=== PATIENT | male | born 1985 | race Caucasian/White ===

== ENCOUNTER 2016-10-11 08:47 | Emergency (ER) | payer MEDICAID ==
[~2016-10-11] VITALS: Ht 182.9 cm; Wt 81.6 kg
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
[2016-10-11 10:19] LABS: EOSINOPHILS % (AUTO) 1.2 % (0.0-3.0); LYMPHOCYTES % (AUTO) 25.9 % (20.0-45.0); MEAN CORPUSCULAR HEMOGLOBIN 26.7 PG (27.0-31.0); MEAN CORPUSCULAR HGB CONC 32.5 G/DL (32.0-36.0); MEAN CORPUSCULAR VOLUME 82 FL (80-99); MEAN PLATELET VOLUME 6.7 FL (6.5-10.1); MONOCYTES % (AUTO) 7.5 % (1.0-10.0); NEUTROPHILS % (AUTO) 64.5 % (45.0-75.0); PLATELET COUNT 404 K/UL (150-450); RED BLOOD COUNT 4.87 M/UL (4.70-6.10); RED CELL DISTRIBUTION WIDTH 12.3 % (11.6-14.8); WHITE BLOOD COUNT 8.1 K/UL (4.8-10.8)
[2016-10-11 10:23] LABS: ACETAMINOPHEN < 10 ug/mL (10-30); ALANINE AMINOTRANSFERASE 33 U/L (3-41); ALBUMIN/GLOBULIN RATIO 0.8 (1.0-2.7); ALCOHOL < 10 mg/dL; ANION GAP 15 (5-15); ASPARTATE AMINO TRANSFERASE 39 U/L (5-40); CALCIUM 9.3 mg/dL (8.6-10.2); CARBON DIOXIDE 25 mEQ/L (20-30); CHLORIDE 98 mEQ/L (98-107); CREATININE 0.9 mg/dL (0.7-1.2); GLOMERULAR FILTRATION RATE > 60 mL/min (>60); HEMOLYSIS 6; POTASSIUM 4.3 mEQ/L (3.4-4.9); SODIUM 138 mEQ/L (135-145); TOTAL PROTEIN 8.5 g/dL (6.6-8.7)
[2016-10-11 12:42] VITALS: BP 125/80
[2016-10-11 15:04] VITALS: BP 132/70
[2016-10-11] MEDS ORDERED: WELLBUTRIN SR100 MG ORAL (15:42)
[2016-10-11] MEDS ORDERED: REMERON45 MG ORAL (15:42)
[2016-10-11] MEDS ORDERED: ZYPREXA10 MG ORAL (15:42)
[2016-10-11] MEDS ORDERED: ATRIPLA TABLET1 EAC1 ORAL (15:42)
[2016-10-11 16:40] VITALS: BP 127/73
[2016-10-11 18:01] VITALS: BP 127/73
[2016-10-11] MEDS ORDERED: GABAPENTIN100 MG ORAL (18:07)
== END 2016-10-11 18:01 | disposition home or self-care (01) ==
LOC: EDBD 08:47 → EMR 09:06
DX: F25.9 Schizoaffective disorder, unspecified (principal); F19.10 Other psychoactive substance abuse, uncomplicated; S60.512A Abrasion of left hand, initial encounter; S60.511A Abrasion of right hand, initial encounter; X58.XXXA Exposure to other specified factors, initial encounter; Y93.9 Activity, unspecified; Y92.9 Unspecified place or not applicable; Z88.8 Allergy status to other drugs, medicaments and biological substances; Z88.2 Allergy status to sulfonamides; Z88.1 Allergy status to other antibiotic agents; F17.200 Nicotine dependence, unspecified, uncomplicated
CPT/HCPCS: 36415; 80053; 80300; 80329; 82550; 85025; 99284

== ENCOUNTER 2016-10-13 02:39 | Emergency (ER) | payer MEDICAID ==
[~2016-10-13] VITALS: Ht 185.4 cm; Wt 72.6 kg
[~2016-10-13 02:39] MED LIST: ATRIPLA TABLET1 EAC1 ORAL; GABAPENTIN100 MG ORAL; REMERON45 MG ORAL; WELLBUTRIN SR100 MG ORAL; ZYPREXA10 MG ORAL
[2016-10-13 02:55] VITALS: BP 136/75
[2016-10-13 03:00] VITALS: BP 136/75
--- NOTE | 2016-10-13 03:19 | Emergency Room Report ---
History of Present Illness General Chief Complaint: General Complaint Source: Patient Present Illness HPI Is a 31-year-old woman who is homeless. He said that he has history of HIV and wants to be checked in the prescription. He was here for the same thing yesterday. Denies any fever or chills. Denies any nausea vomiting. No trauma. He wants food also. Does not want social service consult. Allergies: Coded Allergies: AMOXICILLIN (Verified Allergy, Unknown, 05/04/16) SULFAMETHOXAZOLE (Verified Allergy, Unknown, 05/04/16) TRIMETHOPRIM (Verified Allergy, Unknown, 05/04/16) Patient History Past Medical History: see triage record, old chart reviewed, HIV Past Surgical History: other Pertinent Family History: none Social History: Reports: alcohol use, drug use, smoking Immunizations: other Reviewed Nursing Documentation: PMH: Agreed, PSxH: Agreed Review of Systems Eye: Denies: blurred vision, eye pain ENT: Denies: ear pain, nose congestion, throat swelling Respiratory: Denies: cough, shortness of breath Cardiovascular: Denies: chest pain, palpitations Gastrointestinal: Denies: abdominal pain, diarrhea, nausea, vomiting Musculoskeletal: Denies: back pain, joint pain Skin: Denies: rash Neurological: Denies: headache, numbness Endocrine: Denies: increased thirst, increased urine Hematologic/Lymphatic: Denies: easy bruising All Other Systems: negative except mentioned in HPI Physical Exam Vital Signs Date Time Temp Pulse Resp B/P Pulse Ox O2 Delivery O2 Flow Rate FiO2 10/13/16 02:48 97.9 90 16 136/75 100 Room Air vitals normal Sp02 EP Interpretation: reviewed, normal General Appearance: well appearing, no apparent distress, alert Head: normocephalic, atraumatic Eyes: bilateral eye EOMI, bilateral eye PERRL ENT: hearing grossly normal, normal pharynx Neck: full range of motion, supple, no meningismus Respiratory: chest non-tender, lungs clear, normal breath sounds Cardiovascular #1: regular rate, rhythm, no murmur Gastrointestinal: normal bowel sounds, non tender, no mass, no organomegaly, no bruit, non-distended Musculoskeletal: back normal, gait/station normal, normal range of motion Psychiatric: mood/affect normal Skin: warm/dry Medical Decision Making Diagnostic Impression: Primary Impression: Substance abuse ER Course Patient has a history of amphetamine abuse. He wants HIV medication. He doesn' t know what he supposed be on. I, am not comfortable writing prescription for it. We'll discharge home. After he ate he said he felt better and wants to leave. Last Vital Signs Date Time Temp Pulse Resp B/P Pulse Ox O2 Delivery O2 Flow Rate FiO2 10/13/16 02:48 97.9 90 16 136/75 100 Room Air Status: improved Disposition: HOME, SELF-CARE Condition: Stable PITER NEIL M.D. Oct 13, 2016 03:19
== END 2016-10-13 03:00 | disposition home or self-care (01) ==
LOC: EMR 02:58
DX: F15.10 Other stimulant abuse, uncomplicated (principal); Z88.0 Allergy status to penicillin; Z88.2 Allergy status to sulfonamides; F17.200 Nicotine dependence, unspecified, uncomplicated; Z59.0 Homelessness
CPT/HCPCS: 99282

== ENCOUNTER 2016-10-13 04:09 | Emergency (ER) | payer MEDICAID ==
[~2016-10-13] VITALS: Ht 185.4 cm; Wt 72.6 kg
[2016-10-13 04:02] VITALS: BP 137/80
[2016-10-13 04:03] VITALS: BP 137/80
--- NOTE | 2016-10-13 04:18 | Emergency Room Report ---
History of Present Illness General Chief Complaint: Abdominal Pain Source: Patient Present Illness HPI Is a 31-year-old male who was here earlier. After he ate he left. Now he called 911 from nearby fast food complaining of abdominal pain. He came in asking for food. He still wants his HIV medication. Denies any trauma. Denies any other injury. Allergies: Coded Allergies: AMOXICILLIN (Verified Allergy, Unknown, 05/04/16) SULFAMETHOXAZOLE (Verified Allergy, Unknown, 05/04/16) TRIMETHOPRIM (Verified Allergy, Unknown, 05/04/16) Patient History Past Medical History: see triage record, old chart reviewed Past Surgical History: other Pertinent Family History: none Social History: Reports: drug use, smoking Immunizations: other Reviewed Nursing Documentation: PMH: Agreed, PSxH: Agreed Nursing Documentation-PMH Past Medical History: No History, Except For Review of Systems Eye: Denies: blurred vision, eye pain ENT: Denies: ear pain, nose congestion, throat swelling Respiratory: Denies: cough, shortness of breath Cardiovascular: Denies: chest pain, palpitations Gastrointestinal: Reports: abdominal pain, Denies: diarrhea, nausea, vomiting Musculoskeletal: Denies: back pain, joint pain Skin: Denies: rash Neurological: Denies: headache, numbness Endocrine: Denies: increased thirst, increased urine Hematologic/Lymphatic: Denies: easy bruising All Other Systems: negative except mentioned in HPI Physical Exam Vital Signs Date Time Temp Pulse Resp B/P Pulse Ox O2 Delivery O2 Flow Rate FiO2 10/13/16 03:53 98.8 87 16 137/80 99 Room Air vitals normal Sp02 EP Interpretation: reviewed, normal General Appearance: well appearing, no apparent distress, alert Head: normocephalic, atraumatic Eyes: bilateral eye EOMI, bilateral eye PERRL ENT: hearing grossly normal, normal pharynx Neck: full range of motion, supple, no meningismus Respiratory: chest non-tender, lungs clear, normal breath sounds Cardiovascular #1: regular rate, rhythm, no murmur Gastrointestinal: normal bowel sounds, non tender, no mass, no organomegaly, no bruit, non-distended Musculoskeletal: back normal, gait/station normal, normal range of motion Psychiatric: mood/affect normal Skin: warm/dry Medical Decision Making Diagnostic Impression: Primary Impression: Substance abuse Additional Impression: Abdominal pain of unknown etiology ER Course Patient with abdominal pain. He is asking for food here. I doubt true abdominal pain. Is no trauma. Abdomen is soft. I told patient that I would not write for HIV medication since I cannot confirm that he is HIV positive. Also he does not know what medicine he is on. Last Vital Signs Date Time Temp Pulse Resp B/P Pulse Ox O2 Delivery O2 Flow Rate FiO2 10/13/16 04:03 98.8 16 137/80 99 Room Air 10/13/16 04:02 87 Status: unchanged Disposition: HOME, SELF-CARE Condition: Stable Additional Instructions: Abstain from drugs and alcohol. Follow up with your doctor in 7 days. Return if worse. PITER NEIL M.D. Oct 13, 2016 04:18
[2016-10-13] MEDS ORDERED: LORazepam Inj 2mg/ml 1ml ONE (05:04)
[2016-10-13] MEDS ORDERED: Haloperidol 5mg/ml Inj ONE (05:05)
== END 2016-10-13 05:00 | disposition home or self-care (01) ==
LOC: EDBD 04:09 → EMR 04:09
DX: F15.10 Other stimulant abuse, uncomplicated (principal); R10.9 Unspecified abdominal pain; Z88.0 Allergy status to penicillin; Z88.2 Allergy status to sulfonamides; F17.200 Nicotine dependence, unspecified, uncomplicated
CPT/HCPCS: 99283

== ENCOUNTER 2016-10-13 05:05 | Emergency (ER) | payer MEDICAID ==
[~2016-10-13] VITALS: Ht 185.4 cm; Wt 72.6 kg
[2016-10-13] MEDS ORDERED: LORazepam Inj 2mg/ml 1ml IM ONE (05:15)
[2016-10-13] MEDS ORDERED: Haloperidol 5mg/ml Inj IM ONE (05:15)
--- NOTE | 2016-10-13 05:21 | Emergency Room Report ---
History of Present Illness General Chief Complaint: To Be Triaged Source: Patient, Medical Record, EMS Present Illness HPI Is a 31-year-old male who returns for the third time today. He was also here yesterday. He was here complaining abdominal pain and wanted something to eat. Also wanted his HIV medication. I told him that I would not give his medication for HIV because he doesn't know the name and I don't know the dosing. This would create resistance. He got mad and got up and left. Outside he took off his clothes and was yelling. Police was called and he told him that he is suicidal. At no point did he tell me or the nursing staff he was suicidal before he left. He was also yelling that I did not give him his discharge paperwork or his meds. Police felt that he is a danger to himself and place him on a 5150. Allergies: Coded Allergies: AMOXICILLIN (Verified Allergy, Unknown, 05/04/16) SULFAMETHOXAZOLE (Verified Allergy, Unknown, 05/04/16) TRIMETHOPRIM (Verified Allergy, Unknown, 05/04/16) Patient History Past Medical History: see triage record, old chart reviewed, psych hx, HIV Past Surgical History: other Pertinent Family History: none Social History: Reports: alcohol use, drug use, smoking Immunizations: other Reviewed Nursing Documentation: PMH: Agreed, PSxH: Agreed Review of Systems Eye: Denies: blurred vision, eye pain ENT: Denies: ear pain, nose congestion, throat swelling Respiratory: Denies: cough, shortness of breath Cardiovascular: Denies: chest pain, palpitations Gastrointestinal: Denies: abdominal pain, diarrhea, nausea, vomiting Musculoskeletal: Denies: back pain, joint pain Skin: Denies: rash Neurological: Denies: headache, numbness Endocrine: Denies: increased thirst, increased urine Hematologic/Lymphatic: Denies: easy bruising All Other Systems: negative except mentioned in HPI Physical Exam Sp02 EP Interpretation: reviewed, normal General Appearance: well appearing, no apparent distress, alert, other - Agitated and yelling Head: normocephalic, atraumatic Eyes: bilateral eye EOMI, bilateral eye PERRL ENT: hearing grossly normal, normal pharynx Neck: full range of motion, supple, no meningismus Respiratory: chest non-tender, lungs clear, normal breath sounds Cardiovascular #1: regular rate, rhythm, no murmur Gastrointestinal: normal bowel sounds, non tender, no mass, no organomegaly, no bruit, non-distended Musculoskeletal: back normal, gait/station normal, normal range of motion Psychiatric: other - Agitated Skin: warm/dry Medical Decision Making Diagnostic Impression: Primary Impression: Substance abuse Additional Impressions: Suicidal ideation Psychosis Qualified Codes: F23 - Brief psychotic disorder ER Course Patient was brought in for aggressive behavior. This is probably induced by drugs and alcohol. He was positive for amphetamine day and half ago. Patient will be sedated for protection of staff and himself. Since he is on a 5150, will get PET once he is medically clear. Pt is medically cleared. Lab Results Impression labs normal. Status: improved Disposition: XFER TO PSYCH HOSP/UNIT Condition: Stable PITER NEIL M.D. Oct 13, 2016 05:21
[2016-10-13 05:37] LABS: APPEARANCE,URINE CLEAR; KETONES,URINE NEGATIVE (NEGATIVE); LEUKOCYTE ESTERASE ,URINE NEGATIVE (NEGATIVE); NITRITE,URINE NEGATIVE (NEGATIVE); PH,URINE 6.5 (4.5-8.0); PROTEIN,URINE NEGATIVE (NEGATIVE); UROBILINOGEN,URINE NORMAL MG/DL (0.0-1.0)
[2016-10-13 05:54] LABS: BASOPHILS % (AUTO) 1.3 % (0.0-2.0); EOSINOPHILS % (AUTO) 1.5 % (0.0-3.0); LYMPHOCYTES % (AUTO) 30.9 % (20.0-45.0); MEAN CORPUSCULAR HEMOGLOBIN 27.5 PG (27.0-31.0); MEAN CORPUSCULAR HGB CONC 33.5 G/DL (32.0-36.0); MEAN CORPUSCULAR VOLUME 82 FL (80-99); MEAN PLATELET VOLUME 6.5 FL (6.5-10.1); MONOCYTES % (AUTO) 9.3 % (1.0-10.0); PLATELET COUNT 343 K/UL (150-450); RED BLOOD COUNT 4.66 M/UL (4.70-6.10); RED CELL DISTRIBUTION WIDTH 12.6 % (11.6-14.8); WHITE BLOOD COUNT 7.2 K/UL (4.8-10.8)
[2016-10-13 06:09] LABS: ACETAMINOPHEN < 10 ug/mL (10-30); ALANINE AMINOTRANSFERASE 24 U/L (3-41); CHLORIDE 100 mEQ/L (98-107); POTASSIUM 4.1 mEQ/L (3.4-4.9); SODIUM 137 mEQ/L (135-145)
[2016-10-13 06:32] LABS: ALBUMIN/GLOBULIN RATIO 0.8 (1.0-2.7); ALCOHOL < 10 mg/dL; ANION GAP 16 (5-15); ASPARTATE AMINO TRANSFERASE 32 U/L (5-40); CALCIUM 8.8 mg/dL (8.6-10.2); CARBON DIOXIDE 21 mEQ/L (20-30); CREATININE 0.7 mg/dL (0.7-1.2); GLOMERULAR FILTRATION RATE > 60 mL/min (>60); HEMOLYSIS 6; TOTAL PROTEIN 7.5 g/dL (6.6-8.7)
[2016-10-13 20:35] VITALS: BP 125/83
[2016-10-13 21:31] VITALS: BP 121/79
--- NOTE | 2016-10-14 03:38 | Consultation ---
DATE OF CONSULTATION: 10/13/2016 HISTORY OF PRESENT ILLNESS: The patient is a 31-year-old male with a history of substance use disorder, mainly crystal meth and marijuana, who is a frequent flier at the [employer], came in today with the chief complaint of abdominal pain and complained of being hungry as well as requested to receive his HIV medication. Psychiatry was consulted to assess the patient. During the evaluation, the patient was naked, disheveled, malodorous, and unkempt. He was uncooperative with the evaluation. During his admission, he has been agitated, yelling, and screaming. He received Ativan and Haldol IM. He expressed that he has been suicidal and therefore he was placed on a 5150 hold by the [employer]; however, the hold was not valid. Psychiatry was consulted to clear the patient. During the evaluation, the patient did not endorse any suicidal or homicidal ideation. He has been coming off drugs and it appears that he is suffering from being homeless and battling with substance use disorder as well as other medical conditions including HIV. PAST PSYCHIATRIC HISTORY: He denied any psychiatric history. 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 He denied any suicide attempt in the past. PAST MEDICAL HISTORY: Includes HIV and he is on HAART medication. ALLERGIES: Include amoxicillin . SUBSTANCE USE HISTORY: Includes crystal meth and alcohol. MENTAL STATUS EXAMINATION: The patient was asleep, arousable, alert, and oriented x3. Mood was neutral. Affect was flat congruent with mood. Thought process, there is a paucity of thought content. Insight and judgment are impaired. Cognition is impaired. ASSESSMENT: AXIS I: 1. Substance use disorder. 2. Psychotic disorder by history. AXIS II: Deferred. AXIS III: Human immunodeficiency virus. AXIS IV: High. AXIS V: Global assessment of functioning is 20. PLAN: 1. The patient will remain in the ER, so he feels less sedated. 2. We will give substance abuse disorder. At the time of the discharge, the patient was not an imminent danger to self or others. He was given antipsychotics. We will continue . Jovana John M.D. DR: LUIS JOB#: [id number] CC:
== END 2016-10-13 21:33 ==
LOC: EMR 06:40
DX: F15.10 Other stimulant abuse, uncomplicated (principal); R45.851 Suicidal ideations; F29 Unspecified psychosis not due to a substance or known physiological condition; R10.9 Unspecified abdominal pain; Z88.0 Allergy status to penicillin; Z88.2 Allergy status to sulfonamides; F17.200 Nicotine dependence, unspecified, uncomplicated
CPT/HCPCS: 36415; 80053; 80300; 80329; 81003; 85025; 96372; 99285; J1630